=== PATIENT | female | born 1940 | race Caucasian/White ===

== ENCOUNTER 2019-01-16 10:42 | Inpatient (IN) | payer MEDICARE ==
[~2019-01-16] VITALS: Ht 154.9 cm; Wt 69.6 kg
[2019-01-16] MEDS ORDERED: ALTOPREV20 MG PO (11:00)
[2019-01-16] MEDS ORDERED: TOPROL XL25 M1 PO (11:01)
--- NOTE | 2019-01-16 11:01 | NUR ---
PT TO ROOM FOR EXAM
--- NOTE | 2019-01-16 11:49 | NUR ---
PT C/O LEFT KNEE PAIN RATING 7 OUT OF 10; NAUSEA; MEDICATED PER MAR;MONITORING DEVICES IN PLACE; VSS; IVF INFUSING TO LAC; FAMILY AT BEDSIDE; CALL LIGHT WITHIN REACH; WILL CONTINUE TO MONITOR
[2019-01-16 11:57] LABS: HEMATOCRIT 35.6 % (37.0-47.0); HEMOGLOBIN 11.5 g/dl (12.0-16.0); IMMATURE GRANULOCYTES 0.5 % (0.0-5.0); MEAN CELL VOLUME 90.8 fL CALC (80.0-100.0); MEAN CORPUSCULAR HGB 29.3 pG CALC (26.0-32.0); MEAN CORPUSCULAR HGB CONC 32.3 g/L CALC (32.0-36.0); NEUT# 5.23 thou/uL (2.00-7.15); RED BLOOD COUNT 3.92 mill/uL (4.20-5.60); RED CELL DISTRI WIDTH 13.2 % (11.5-15.5)
--- NOTE | 2019-01-16 12:03 | NUR ---
REPORT GIVEN TO MARGARITA YEPEZ
--- NOTE | 2019-01-16 12:27 | NUR ---
PT STATES HER PAIN IS LESSENED AT THIS TIME. SWELLING NOTED TO LEFT KNEE. PT ALERT AND ORIENTED.
[2019-01-16 13:04] LABS: URINE BILIRUBIN - DIPSTICK NEGATIVE (NEGATIVE); URINE BLOOD DIPSTICK NEGATIVE (NEGATIVE); URINE COLOR YELLOW; URINE GLUCOSE - DIPSTICK NEGATIVE (NEGATIVE); URINE KETONE NEGATIVE (NEGATIVE); URINE LEUK ESTERASE NEGATIVE (NEGATIVE); URINE NITRITE - DIPSTICK NEGATIVE (Negative); URINE PH 5.5 (4.5-8.0); URINE PROTEIN - DIPSTICK NEGATIVE (NEG-TRACE); URINE UROBILINOGEN - DIPSTICK 0.2 E.U./dL (0.2)
[2019-01-16 13:19] LABS: ALBUMIN 3.9 g/dL (3.2-5.0); ALKALINE PHOSPHATASE 74 u/l (38-126); AMYLASE 91 u/l (30-110); ANION GAP 13 (6-22 (CALC)); BILIRUBIN, TOTAL 0.6 mg/dL (0.0-1.4); BUN 24 mg/dL (8-23); BUN/CREATININE RATIO 25 (12-20 (CALC)); CARBON DIOXIDE 25 mmol/l (22-30); CHLORIDE 103 mmol/l (95-108); GFR 53 ML/MIN (>=60 (CALC)); GFR FOR AFR.AMER. > 60 ML/MIN (>=60 (CALC)); LIPASE 109 u/l (23-300); POTASSIUM 3.9 mmol/l (3.5-5.1); SGOT/AST 30 u/l (9-36); SODIUM 138 mmol/l (137-146); TOTAL PROTEIN 6.7 g/dL (6.3-8.2)
[2019-01-16 13:29] LABS: MYOGLOBIN 117 ng/mL (0 - 62)
--- NOTE | 2019-01-16 14:00 | NUR ---
LEFT KNEE ASPIRATION DONE BY DR. CARLOS WITH NO FLUID NOTED IN JOINT.
--- NOTE | 2019-01-16 14:30 | NUR ---
PT TO ULTRASOUND. PT DENIES COMPLAINTS AT THIS TIME
--- NOTE | 2019-01-16 17:16 | NUR ---
PT DENIES COMPLAINTS. PLAN OF CARE UPDATED WITH PT
--- NOTE | 2019-01-16 17:36 | NUR ---
PT ARRIVES TO FLOOR VIA STRETCHER WITH SATFF. PT IS SLID ONTO BED WITH 2 ASSIST. DAUGHTER AT BEDSIDE. ASSESMERNT AND ADMISSION AT THIS TIME. LEFT KNEE IS SWOLLEN AND WARM. NO REDNESS NOTED. SKIN IS OTHERWISE INTACT. IV FLUSHES WELL. PT ORIENTED TO ROOM AND INSTRUCTED TO CALL FOR ANY NEEDS. WILL CONTINUE TO MONITOR.
[2019-01-16 17:50] VITALS: BP 139/67
--- NOTE | 2019-01-16 19:00 | NUR ---
REPORT FROM ANA ANTONIO. PT RESTING IN BED. ALERT AND ORIENTED. PT DENIES ANY PAIN OR DISCOMFORT AT THIS TIME. IV SITE APPEARS HEALTHY, INITIATED IV FLUIDS. DISCUSSED POC. PT VERBALIZED UNDERSTANDING. CALL LIGHT WITHIN REACH. WILL CONTINUE TO MONITOR.
--- NOTE | 2019-01-16 23:16 | NUR ---
PT RESTING IN BED. DENIES ANY PAIN OR DISCOMFORT. NO APPARENT DISTRESS NOTED. CALL LIGHT WITHIN REACH. WILL CONTINUE TO MONITOR.
--- NOTE | 2019-01-17 03:40 | NUR ---
PT RESTING IN BED. NO APPARENT DISTRESS NOTED. CALL LIGHT WITHIN REACH. WILL CONTINUE TO MONITOR.
[2019-01-17 04:35] VITALS: BP 149/70
--- NOTE | 2019-01-17 06:02 | NUR ---
ASSISTED PT TO BSC. PT VOIDED 350ML DARK YELLOW URINE. ASSISTED BACK TO BED X1 ASSIST. CALL LIGHT WITHIN REACH. PT DENIES PAIN AND ANY OTHER WANTS OR NEEDS AT THIS TIME.
--- NOTE | 2019-01-17 08:10 | NUR ---
ASSESSMENT IS COMPLETED: IV SITE IS FREE FROM REDNESS OR EDMEA, HR IS REG,PULSES ARE STRONG X4, ABD IS SOFT WITH ACTIVE BS. BREATH SOUNDS ARE CLEAR BILATERALLY. CONTINUE TO OBSERVE AND MONITOR. LEFT LEG IS PUFFY, WITH WARM TO THE TOUCH. PT HAD SEVERAL BLANKETS IN PLACE AND THE ROOM WAS WARM.
[2019-01-17 08:43] VITALS: BP 142/57
--- NOTE | 2019-01-17 08:44 | NUR ---
PT TEMP IS 100.4 BUT THE ROOM IS WARM AND PT HAS BLANKETS WHEN TOUCHED HER LEG IT WAS WARM FROM THE BLANKETES.
--- NOTE | 2019-01-17 09:25 | NUR ---
TEMP IS NOW 99.7
[2019-01-17 11:01] LABS: CREATININE 1.1 mg/dL (0.5-1.0); MAGNESIUM 1.7 mg/dL (1.6-2.3); POTASSIUM 3.7 mmol/l (3.5-5.1)
[2019-01-17 11:03] LABS: HEMOGLOBIN 9.1 g/dl (12.0-16.0); IMMATURE GRANULOCYTES 0.6 % (0.0-5.0); MEAN CELL VOLUME 92.4 fL CALC (80.0-100.0); MEAN CORPUSCULAR HGB CONC 32.5 g/L CALC (32.0-36.0); NEUT# 4.07 thou/uL (2.00-7.15); RED BLOOD COUNT 3.03 mill/uL (4.20-5.60); RED CELL DISTRI WIDTH 13.7 % (11.5-15.5)
--- NOTE | 2019-01-17 12:10 | NUR ---
PT IS RELAXING IN THE CHAIR, NO DISTRESS NOTED. IV SITE IS FREE FROM REDNESS OR EDEMA.
--- NOTE | 2019-01-17 13:00 | NUR ---
S: JEREMY REGAN is a 78 F who presents with FEVER/KNEE SWELLING. She has a history of KNEE SURGERY. All medications in patient's chart were reviewed. O: VS: BP 142/57, P 80, RR 18,T 100.4 W 69kg, HT 61 IN, Scr= 1.1, CrCl= 40 ml/min A: Blood culture <is pending/show> which is sensitive to <>. Urine culture <is pending/show> which is sensitive to <>. P: Patient is on CEFEPIME 1 GRAM BID. Vancomycin ordered for pharmacy to dose. Start Vancomycin 1 GRAM Q24H Vancomycin trough is drawn before the 4th dose on 01/19/19 @1330 Vancomycin goal trough is between 15-20 mcg/ml. Pharmacy will follow and or advise on antibiotics use as needed. LOI CHRISTIANSON PHARMD
--- NOTE | 2019-01-17 13:08 | NUR ---
PT BEING TRANSPORTED TO CT SCAN FOR THE LEG. GRADUALLY WENT TO THE WITH ASSISTANCE FROM STAFF AND FAMILY.
[2019-01-17 16:18] VITALS: BP 123/58
--- NOTE | 2019-01-17 19:40 | NUR ---
PT REPORTING SHE HAS NOT URINATED SINCE THIS AM, PT PLACED ON BSC W/WATER RUNNING IN ROOM. [employer] INSTRUCTED DAY NURSE TO BLADDER SCAN AND CALL HER W/RESULTS IF PT HAS NOT URINATED PRIOR TO HER LEAVING.
--- NOTE | 2019-01-17 19:50 | NUR ---
PT ASSISTED OFF OF BSC 600CC OF CLEAR DARK YELLOW URINE OUTPUT AND SMALL SOFT STOOL. PT AMBULATED W/1XSTANDBY ASSIST AND REPORTED FEELING IMPROVEMENT AT THIS TIME. PT REPOSITIONED BACK TO RECLINER W/FEET ELEVATED AND CALL LIGHT W/IN REACH.
[2019-01-17 19:52] VITALS: BP 146/81
--- NOTE | 2019-01-17 20:31 | NUR ---
PT ASSESSMENT COMPLETED AT THIS TIME. NO NOTED REDNESS TO R.KNEE/PT REPORTS TENDERNESS, BUT "NOT PAIN," EDEMA 1+ TO R.KNEE NOTED AT THIS TIME. PT SITTING IN RECLINER W/LIGHTS ON AND CALL LIGHT IN HAND. DENIES ANY OTHER NEEDS AT THIS TIME. IV ANTIBIOTIC THERAPY RUNNING TO 20RAC W/NS TO FOLLOW/SITE APPEARS HEALTHY. MEDICATION REVIEWED W/PT/ALLERGIES CONFIRMED W/PT AND SHE HAS BEEN INSTRUCTED TO CALL FOR ANY SIDE AFFECTS OCCURRING.
--- NOTE | 2019-01-18 02:00 | NUR ---
IV PUMP SOUNDED, IV SITE FOUND TO APPEAR EDEMATOUS ABOVE SITE W/SOME REDNESS TO SITE. IV REMOVED AND COOL PACK PLACED TO SITE. NEW IV ACCESS OBTAINED AND IVF ARE RUNNING TO 22 TO LH. PT INSTRUCTED TO CALL IF SHE NOTICES ANY BURNING OR DISCOMFORT TO THIS NEW SITE. PT DENIES ANY BURNING OR DISCOMFORT TO OTHER SITE. WILL CONTINUE TO MONITOR. PT DENIES ANY OTHER NEEDS AT THIS TIME.
--- NOTE | 2019-01-18 04:15 | NUR ---
V/S OBTAINED BY KENJIE, PT REFUSED TO GET UP TO BSC AT THIS TIME, STATING SHE "DIDN'T FEEL LIKE SHE NEEDED TO GO." WILL FOLLOW-UP AND HAVE PT ATTEMPT TO URINATE AND MONITOR ABILITY.
[2019-01-18 05:12] VITALS: BP 138/82
[2019-01-18 05:40] LABS: HEMATOCRIT 26.5 % (37.0-47.0); HEMOGLOBIN 8.5 g/dl (12.0-16.0); IMMATURE GRANULOCYTES 0.2 % (0.0-5.0); MEAN CELL VOLUME 92.7 fL CALC (80.0-100.0); MEAN CORPUSCULAR HGB 29.7 pG CALC (26.0-32.0); MEAN CORPUSCULAR HGB CONC 32.1 g/L CALC (32.0-36.0); NEUT# 3.65 thou/uL (2.00-7.15); RED BLOOD COUNT 2.86 mill/uL (4.20-5.60); RED CELL DISTRI WIDTH 13.5 % (11.5-15.5)
[2019-01-18 05:42] LABS: ANION GAP 10 (6-22 (CALC)); BUN 18 mg/dL (8-23); BUN/CREATININE RATIO 19 (12-20 (CALC)); CARBON DIOXIDE 19 mmol/l (22-30); CHLORIDE 112 mmol/l (95-108); CREATININE 0.9 mg/dL (0.5-1.0); GFR 60 ML/MIN (>=60 (CALC)); GFR FOR AFR.AMER. > 60 ML/MIN (>=60 (CALC)); POTASSIUM 3.8 mmol/l (3.5-5.1); SODIUM 137 mmol/l (137-146)
--- NOTE | 2019-01-18 06:28 | NUR ---
IVF REPLENISHED AT THIS TIME. PT WAS SLEEPING, DENIES ANY NEEDS, DENIES PAIN.
--- NOTE | 2019-01-18 07:00 | NUR ---
REPORT RECEIVED FROM MARGARITA SANCHEZ. PT SITTING UP IN BEDSIDE CHAIR; ALERT AND ORIENTED. C/O TENDERNESS TO LEFT KNEE; NO SIGNIFICANT PAIN, BUT DOES REPORT CONTINUED DIFFICULTY STANDING AND MOVING. NO SWELLING OR REDNESS NOTED TO KNEE. RESPIRATIONS EVEN AND UNLABORED ON ROOM AIR. PLAN OF CARE REVIEWED. PT ENCOURAGED TO VERBALIZE CONCERNS. STATES UNDERSTANDING. SAFETY MEASURES IN PLACE. CALL LIGHT WITHIN REACH.
[2019-01-18 07:26] VITALS: BP 137/64
--- NOTE | 2019-01-18 09:00 | NUR ---
PT ASSISTED WITH SHOWER AND BATHROOM; BACK INTO BEDSIDE CHAIR.
--- NOTE | 2019-01-18 10:04 | NUR ---
FLU VAC ADMINISTERED. PT DECLINES PNA VAC STATING THAT SHE WANTS TO DOUBLE CHECK IF SHE HAS RECEIVED IT WITHIN THE LAST FEW YEARS. FAMILY MEMBER AT BEDSIDE. ABT INFUSING AT THIS TIME; IV SITE TO APPEARS HEALTHY.
--- NOTE | 2019-01-18 11:40 | NUR ---
DR. BESS AT BEDSIDE.
--- NOTE | 2019-01-18 12:47 | NUR ---
PT OFF UNIT FOR LEFT KNEE ASPIRATION.
--- NOTE | 2019-01-18 13:20 | NUR ---
PT BACK TO ROOM VIA WHEELCHAIR. PT REPORTS THAT SHE FEELS MUCH BETTER AND IS MORE MOBILE AFTER 60 ML FLUID ASPIRATION. NEW ORDER FROM DR. BESS FOR INFECTIOUS DISEASE CONSULT FOR SEPTIC ARTHRITIS WITH HARDWARE. PT UPDATED.
--- NOTE | 2019-01-18 14:46 | NUR ---
DR. MCELROY CONSULT AT BEDSIDE AND PHYSICAN AURELIO COMPLETE. RECOMMENED ADDING GOUT TEST TO JOINT FLUID.
--- NOTE | 2019-01-18 15:02 | NUR ---
MEDICATED WITH 2 MG MOPHINE IVP FOR C/O ABD PAIN, PATIENT STATES PAIN IS CONSTANT WITH OCCASIONAL SHARP PAINS.
--- NOTE | 2019-01-18 15:32 | NUR ---
IV TO LEFT HAND INFILTRATED; SITE D/C'D AND ICE PACK APPLIED. NEW SITE TO RFA STARTED; VANCO NOW INFUSING WITHOUT DIFFICULTY.
[2019-01-18 15:34] VITALS: BP 148/71
[2019-01-19 04:35] VITALS: BP 149/83
--- NOTE | 2019-01-19 05:34 | NUR ---
PT AWAKE AND ALERT; DENIES PAIN; SWELLING TO LEFT KNEE DECREASED. KNEE REMAINS WARM TO TOUCH. DRSG INTACT. PT AMBULATE TO BR WITH ASSIST.
[2019-01-19 08:09] VITALS: BP 171/74
--- NOTE | 2019-01-19 08:25 | NUR ---
ASSESSMENT IS COMPLTED: PT IS SITTING IN THE CHAIR, NO DISTRESS NOTED. IV SITE IS FREE FROM REDNESS OR EDEMA. HR IS REG,PULSES ARE STRONG X4, ABD IS SOFT WITH ACTIVE BS. CONTINUE TO OBSERVE AND MONITOR.
--- NOTE | 2019-01-19 12:00 | NUR ---
PT IS RELAXING IN THE CHAIR, NO DISTRESS NOTED. IV SITE IS FREE FROM REDNESS OR EDEMA. CONTINUE TO OBSERVE AND MONITOR.
[2019-01-19 13:29] LABS: HEMATOCRIT 29.1 % (37.0-47.0); HEMOGLOBIN 9.1 g/dl (12.0-16.0); IMMATURE GRANULOCYTES 0.3 % (0.0-5.0); MEAN CELL VOLUME 95.1 fL CALC (80.0-100.0); MEAN CORPUSCULAR HGB 29.7 pG CALC (26.0-32.0); MEAN CORPUSCULAR HGB CONC 31.3 g/L CALC (32.0-36.0); NEUT# 4.52 thou/uL (2.00-7.15); RED BLOOD COUNT 3.06 mill/uL (4.20-5.60); RED CELL DISTRI WIDTH 13.7 % (11.5-15.5)
[2019-01-19 13:53] LABS: ANION GAP 13 (6-22 (CALC)); BUN 16 mg/dL (8-23); BUN/CREATININE RATIO 21 (12-20 (CALC)); CARBON DIOXIDE 20 mmol/l (22-30); CHLORIDE 109 mmol/l (95-108); CREATININE 0.7 mg/dL (0.5-1.0); GFR > 60 ML/MIN (>=60 (CALC)); GFR FOR AFR.AMER. > 60 ML/MIN (>=60 (CALC)); MAGNESIUM 1.7 mg/dL (1.6-2.3); POTASSIUM 4.1 mmol/l (3.5-5.1); SODIUM 137 mmol/l (137-146)
--- NOTE | 2019-01-19 14:29 | NUR ---
S: JEREMY REGAN is a 78 F who presents with fever/L knee swelling. She has a history of knee replacement, HTN, and dyslipidemia. All medications in patient's chart were reviewed. O: VS: BP: 171/74 mmHg, P: 77 beats/min, RR: 16 breaths/min, T: 96.4 F W: 69.59 kg, HT: 61 in, Scr: 0.7 mg/dl, CrCl: 40 ml/min A: Blood culture is pending. Synovial fluid culture is pending. P: Patient is on Cefepime 1 gm IV BID and Vancomycin 1 gm q24h. Vancomycin ordered for pharmacy to dose. Vancomycin trough is 12 mcg/ml. Increase Vancomycin 1250 mg IV Q24H. Vancomycin trough will be drawn on 01/23 at 11:30. Vancomycin goal trough is between 15-20 mcg/ml. Pharmacy will follow and or advise on antibiotics use as needed.
[2019-01-19 16:00] VITALS: BP 147/70
[2019-01-19 19:15] VITALS: BP 154/79
--- NOTE | 2019-01-19 20:21 | NUR ---
ASSESSMENT COMPLETED. IV SITE PATENT AND ORDERED IVF INFUSING WELL. BLE EDEMA NOTED AND ELEVATED. C/O SLIGHT INDIGESTION AND MEDICATED WITH ORDERED PRN GI COCKTAIL, WILL REASSESS. DENIES ANY OTHER NEEDS. INSTRUCTED TO CALL FOR ANY NEEDS; CALL LIGHT IS IN REACH. WILL CONTINUE TO MONITOR.
--- NOTE | 2019-01-20 00:23 | NUR ---
PT. SITTING UP IN BED WITH NO DISTRESS NOTED; DENIES NEEDS/PAIN. ENCOURAGED TO CALL FOR ANY NEEDS. CALL LIGHT IS IN REACH.
[2019-01-20 03:33] VITALS: BP 125/65
--- NOTE | 2019-01-20 03:33 | NUR ---
PT. RESTING IN BED WITH NO DISTRESS NOTED. VSS.DENIES NEEDS/PAIN. ENCOURAGED TO CALL FOR ANY NEEDS. CALL LIGHT IS IN REACH. WILL CONTINUE TO MONITOR.
--- NOTE | 2019-01-20 09:00 | NUR ---
PT RESTING IN CHAIR, ASSESMENT COMPLETED AT THIS TIME. NO NEEDS WILL CONTINUE TO MONITOR
[2019-01-20 15:21] VITALS: BP 127/83
--- NOTE | 2019-01-21 12:00 | NUR ---
PT UP TO CHAIR, DAUGHTER AT BEDSIDE. AWAITING ID CONSULT. PT READY TO GO HOME. WILL CONTINUE TO MONITPR.
--- NOTE | 2019-01-21 16:00 | NUR ---
DR LACY TO TALK WITH PT VIA FACE TIME. RECOMENDATION GIVEN. WILL WAIT FOR FURTHER ORDERS.
--- NOTE | 2019-01-21 19:05 | NUR ---
PT DC HOME VIA WHEELCHAIR IN STABLE CONDITION
== END 2019-01-20 19:05 | disposition home or self-care (01) | DRG 560 ==
LOC: ED 10:42 → ED-I 16:06 → ED 16:34 → MS2 16:35
PROVIDERS: Emergency Medicine; Nurse Practitioner Family; ADMIT Internal Medicine; ATTEND Internal Medicine
PROC: 0S9D3ZZ Drainage of Left Knee Joint, Percutaneous Approach (ICD-10-PCS; principal; 2019-01-16)
PROC: 0S9D3ZX Drainage of Left Knee Joint, Percutaneous Approach, Diagnostic (ICD-10-PCS; 2019-01-18)
PROC: 3E02340 Introduction of Influenza Vaccine into Muscle, Percutaneous Approach (ICD-10-PCS; 2019-01-18)
DX: T84.54XA Infection and inflammatory reaction due to internal left knee prosthesis, initial encounter (principal); N17.9 Acute kidney failure, unspecified; M00.9 Pyogenic arthritis, unspecified; I10 Essential (primary) hypertension; E78.5 Hyperlipidemia, unspecified; M71.22 Synovial cyst of popliteal space [Baker], left knee; D63.8 Anemia in other chronic diseases classified elsewhere; Y83.1 Surgical operation with implant of artificial internal device as the cause of abnormal reaction of the patient, or of later complication, without mention of misadventure at the time of the procedure; Z96.653 Presence of artificial knee joint, bilateral; Z23 Encounter for immunization
CPT/HCPCS: G0378; J0692; J3370; Q3014